=== PATIENT | female | born 1975 | race Two or more races ===

== ENCOUNTER 2016-12-03 15:46 | Emergency (ER) | payer OTHER ==
--- NOTE | ~2016-12-03 | CR63 ---
[facility] A Service of [facility] & [facility] RADIOLOGY TEXT RESULTS PATIENT: PITO CARVER LOCATION: CFTX : 75 UNIT #: [id number] AGE: [address]: Kelly Cox SEX: F ORDER DR: [id number] [facility] [address] [place], [place] [address] [id number] E MR#: [id number] Acc #: [id number] NAME: PITO CARVER : 1975 SEX: F STUDY DATE/TIME: 12/03/2016 15:15 UNIT: [facility] ROOM: STUDY DESCRIPTION: CR Chest 2 View Attending Physician: Kelly Cox P.A.-C. Ordering Physician: Kelly Cox P.A.-C. Primary Care Physician: No Primary Care Physician MEDICAL IMAGING REPORT This report is preliminary unless electronic signature is present EXAM Chest 12/03/2016 HISTORY 41-year-old female with cough, congestion, flu-like symptoms. Patient gives history of high blood pressure. Current symptoms 3 weeks duration. FINDINGS Two-view chest demonstrates a large body habitus. Cardiac size and configuration are normal. Hilar structures are preserved and mediastinal contours normal. Lungs are expanded and clear. There is some elevation of the left hemidiaphragm. On the lateral view there appears to be artifact. This could reflect some atelectasis in the lingula segment. I have no comparison chest. IMPRESSION No acute chest finding Dictated by... hBarathi Garza M.D. THIS IS AN ELECTRONICALLY VERIFIED REPORT Bharathi Garza M.D. at 12/04/2016 8:27 AM ILDA/sandip TD: 12/03/2016 16:44 JOB #: [id number] MEDICAL IMAGING REPORT Page 1 of 1 COPY
[2016-12-03 15:15] LABS: URINE SOURCE CLEAN CATCH
[2016-12-03 15:28] LABS: URINE APPEARANCE CLEAR; URINE COLOR YELLOW; URINE GLUCOSE NORM (NORM); URINE KETONE NEG (NEG); URINE LEUKOCYTE ESTERASE 3+ (NEG); URINE NITRATE NEG (NEG); URINE PROTEIN 1+ (NEG); URINE SPECIFIC GRAVITY 1.025 (1.003-1.035); URINE UROBILINOGEN NORM (NORM)
[2016-12-03 15:48] LABS: URINE BILIRUBIN POS (NEG)
[2016-12-03 15:51] LABS: CULTURE INDICATED? YES; URINE BLOOD 2+ (NEG)
== END 2016-12-03 16:15 | disposition home or self-care (01) ==
LOC: CED 15:46
PROVIDERS: Physician Assistant
DX: L27.0 Generalized skin eruption due to drugs and medicaments taken internally (principal); T49.2X5A Adverse effect of local astringents and local detergents, initial encounter; R05 Cough; M54.5 Low back pain; E11.9 Type 2 diabetes mellitus without complications; I10 Essential (primary) hypertension; K21.9 Gastro-esophageal reflux disease without esophagitis; F31.9 Bipolar disorder, unspecified; Z88.1 Allergy status to other antibiotic agents; Z87.891 Personal history of nicotine dependence
CPT/HCPCS: 71020; 81003; 87086; 87088; 87186; 99284